=== PATIENT | female | born 2000 | race Caucasian/White ===

== ENCOUNTER 2021-12-19 08:38 | Outpatient (CLI) | payer OTHER, SELFPAY ==
[2021-12-19 11:17] LABS: Chloride* 106 mmol/L (96-114)
[2021-12-19 11:18] LABS: Albumin* 4.6 g/dL (3.3-5.0); Potassium* 4.2 mmol/L (3.6-5.1); Sodium* 140 mmol/L (135-149)
[2021-12-19 11:20] LABS: Creatinine* 0.8 mg/dL (0.5-1.5); Estimated Glomerular Filt Rate 106 ml/min
[2021-12-19 11:21] LABS: Alanine Aminotransferase* 17 U/L (4-35); Alkaline Phosphatase* 45 U/L (40-150); Aspartate Amino Transferase* 23 U/L (12-35); Bilirubin Total* 0.6 mg/dL (0.1-1.5); Blood Urea Nitrogen* 14 mg/dL (5-24); Carbon Dioxide* 26 mmol/L (20-32); Total Protein* 7.5 g/dL (6.0-8.3)
[2021-12-19 11:22] LABS: Calcium* 9.7 mg/dL (8.4-10.6); Glucose* 100 mg/dL (60-115)
[2021-12-19 11:43] LABS: C Reactive Protein* < 0.5 mg/dL (0.5-1.0)
== END 2021-12-19 08:39 | disposition home or self-care (01) ==
PROVIDERS: PCP Family Medicine; Visit Provider Family Medicine
DX: R10.84 Generalized abdominal pain (principal)
CPT/HCPCS: 80053; 86140